=== PATIENT | female | born 2000 | race Caucasian/White ===

== ENCOUNTER 2020-11-14 06:46 | Emergency (ER) | payer OTHER ==
[2020-11-14 06:55] VITALS: O2SAT 100
--- NOTE | 2020-11-14 07:27 | ERPHSYRPT ---
- History of Present Illness Source: patient Patient Subjective Stated Complaint: pt c/o lt leg pain Triage Nursing Assessment: pt c/o lt upper leg pain (groin to knee) area. Pt states, "it started yesterday at 0530 and I tried to walk it off but it is worse today". No edema, no redness noted. Pt c/o pain with palpation. Physician History: 20 yo wf w L groin/leg pain x 1 day. Pt denies injury and states pain 7/10 on pain scale. It is worse w movement and described as burning. She denies swelling/redness/chest pain/dyspnea/back pain. Pt had similar pain in past w . Method of Injury: unknown Occurred: yesterday Quality: constant Severity of Pain-Max: moderate Severity of Pain-Current: moderate Lower Extremities Pain: hip: left, leg: left, thigh: left Modifying Factors: Improves With: movement Associated Symptoms: No unable to bear weight, No dizzy, No fainted, No seizure, No snapping sensation, No popping sensation Allergies/Adverse Reactions: amoxicillin Adverse Reaction (Mild, Verified 11/14/20 07:01) Hives Penicillins Adverse Reaction (Mild, Verified 11/14/20 07:01) Hives Home Medications: Buspirone HCl [Buspar] 10 mg PO TID 11/14/20 [History] buPROPion HCl [Wellbutrin Sr] 200 mg PO DAILY 11/14/20 [History] Hx Tetanus, Diphtheria Vaccination/Date Given: Yes Hx Influenza Vaccination/Date Given: Yes Hx Pneumococcal Vaccination/Date Given: No Immunizations Up to Date: Yes Travel Risk - International Travel Have you traveled outside of the country in past 3 weeks: No - Coronavirus Screening Are you exhibiting any of the following symptoms?: No Close contact with a COVID-19 positive Pt in past 14-21 Days: No - Review of Systems Constitutional: No Symptoms Eyes: No Symptoms Ears, Nose, & Throat: No Symptoms Respiratory: No Symptoms Cardiac: No Symptoms Genitourinary Symptoms: No Symptoms Skin: No Symptoms Neurological: No Symptoms Psychological: No Symptoms Endocrine: No Symptoms Hematologic/Lymphatic: No Symptoms Immunological/Allergic: No Symptoms - Past Medical History Pertinent Past Medical History: Yes Neurological History: No Pertinent History ENT History: No Pertinent History Cardiac History: Other Respiratory History: Asthma Endocrine Medical History: No Pertinent History GI Medical History: No Pertinent History History: No Pertinent History Psycho-Social History: Anxiety, Depression, Other Female Reproductive Disorders: No Pertinent History Other Medical History: ptsd. murmur at a younger age - Past Surgical History Past Surgical History: No Neuro Surgical History: No Pertinent History Cardiac: No Pertinent History Respiratory: No Pertinent History Gastrointestinal: No Pertinent History Genitourinary: No Pertinent History Musculoskeletal: No Pertinent History Female Surgical History: No Pertinent History - Social History Smoking Status: Never smoker Exposure to second hand smoke: Yes Drug Use: none Patient Lives Alone: No Significant Family History: no pertinent family hx - Female History Hx Last Menstrual Period: 10/03/20 Hx Now: No (took home test, negative) - Nursing Vital Signs Nursing Vital Signs: Initial Vital Signs Temperature 98.0 F 11/14/20 06:51 Pulse Rate 99 H 11/14/20 06:51 Respiratory Rate 18 11/14/20 06:51 Blood Pressure 140/71 11/14/20 06:51 O2 Sat by Pulse Oximetry 100 11/14/20 06:51 Pain Scale Pain Intensity 7 - Physical Exam General Appearance: no apparent distress Eyes, Ears, Nose, Throat Exam: normal ENT inspection, TMs normal, pharynx normal, moist mucous membranes Neck Exam: normal inspection, non-tender, supple, full range of motion, No Brudzinski, No Kernig's, No meningismus, No carotid bruit Cardiovascular/Respiratory Exam: normal breath sounds, regular rate/rhythm, heart sounds normal, no respiratory distress, normal peripheral pulses, No murmur Gastrointestinal/Abdominal Exam: non-tender, soft, no organomegaly Back Exam: normal inspection, normal range of motion, No CVA tenderness, No vertebral tenderness, No rash, No decreased range of motion Hips Exam: left: pain (Pain w LLE movement), bilateral: non-tender, normal inspection, normal range of motion Legs Exam: bilateral leg: non-tender, normal inspection, normal range of motion, no evidence of injury Knees Exam: bilateral knee: non-tender, normal inspection, normal range of motion, no evidence of injury Ankle Exam: bilateral ankle: non-tender, normal inspection, normal range of motion, no evidence of injury DTR - Lower Extremities Exam: knee (R): 2+, knee (L): 2+ Neuro/Tendon Exam: normal sensation, normal motor functions, normal tendon functions, responds to pain, no evidence tendon injury, No motor deficit, No sensory deficit Mental Status Exam: alert, oriented x 3, cooperative, No agitated, No uncooperative Skin Exam: normal color, warm, dry, No rash SpO2 Interpretation: normal SpO2: 100 O2 Delivery: Room Air - Course Nursing assessment & vital signs reviewed: Yes - Radiology Ultrasound Exam Venous Lower Extremity Ultrasound: negative (Neg per tech) Ordered Tests: Active Orders 24 hr Category Date Time Status Ultrasound Unilateral Extremities [VENOUS UNILAT/ Exams 11/14/20 07:48 Taken LIMITED EXTREMIT] [US] Stat Medication Summary Discontinued Medications Generic Name Dose Route Start Last Admin Trade Name Freq PRN Reason Stop Dose Admin Ketorolac Tromethamine 60 mg 11/14/20 07:46 11/14/20 07:49 Toradol 30 Mg Injection IM 11/14/20 07:47 60 mg STAT ONE Administration Ketorolac Tromethamine Confirm 11/14/20 07:48 Toradol 30 Mg Injection Administered 11/14/20 07:49 Dose 60 mg .ROUTE .STK-MED ONE - Progress Progress: improved Progress Note: 11/14/20 07:48 60mg IM Toradol - Departure Departure Disposition: Home Clinical Impression: Leg pain Condition: Stable Critical Care Time: No Referrals: JODIE SWANSON MD [Primary Care Provider] - Instructions: Muscle Strain (DC) Additional Instructions: Rest/Heat/Massage Toradol as needed for pain Return to ER for increased pain Activity as tolerated Forms: Work/School Release Form Prescriptions: Ketorolac Tromethamine [Toradol] 10 mg PO TID PRN PRN #10 tablet PRN Reason: Pain
[2020-11-14] MEDS ORDERED: TORAdol 30 mg Injection IM ONE (07:46)
[2020-11-14] MEDS ORDERED: TORAdol 30 mg Injection ONE (07:48)
[2020-11-14 07:55] VITALS: BP 130/92; PULSE 88
--- NOTE | 2020-11-14 08:43 | XRAY ---
Indication: Left lower extremity pain. Two-dimensional sonogram and color Doppler imaging of the major venous vessels of the left leg was performed. Comparison: None No thrombus seen in the examined deep venous vessels of the left leg including greater saphenous vein. Veins demonstrate normal compressibility. Venous waveforms are normal with and without augmentation. Impression: Left leg negative for DVT. Comment: Preliminary report was given.
== END 2020-11-14 08:10 | disposition home or self-care (01) ==
LOC: ED 06:46
DX: M79.652 Pain in left thigh (principal)
CPT/HCPCS: 93971; 96372; 99284; J1885

== ENCOUNTER 2022-10-18 13:24 | Emergency (ER) | payer OTHER ==
[2022-10-18 13:52] VITALS: O2SAT 98
--- NOTE | 2022-10-18 14:04 | ERPHSYRPT ---
- History of Present Illness Time Seen by Provider: 10/18/22 14:02 Source: patient Exam Limitations: no limitations Patient Subjective Stated Complaint: C/O cough that started sometime last week. Denies fever. Patient states someone in the household tested positive for flu A recently. Triage Nursing Assessment: Patient ambulated back to ED without difficulties. No SOB. No cough noted during assessment. Lungs clear. Physician History: C/O cough that started sometime last week. Denies fever. Patient states someone in the household tested positive for flu A recently. Timing/Duration: yesterday Cough Quality/Degree: dry cough Possible Cause: no prior episodes Associated Symptoms: denies symptoms Allergies/Adverse Reactions: amoxicillin Adverse Reaction (Mild, Verified 10/18/22 13:44) Hives Penicillins Adverse Reaction (Mild, Verified 10/18/22 13:44) Hives Home Medications: Lumateperone Tosylate [Caplyta] 1 cap PO DAILY 10/18/22 [History] Hx Tetanus, Diphtheria Vaccination/Date Given: Yes Hx Influenza Vaccination/Date Given: Yes Hx Pneumococcal Vaccination/Date Given: No Immunizations Up to Date: Yes Travel Risk - International Travel Have you traveled outside of the country in past 3 weeks: No - Coronavirus Screening Are you exhibiting any of the following symptoms?: Yes Symptoms: Cough: New Onset Close contact with a COVID-19 positive Pt in past 14-21 Days: No - Vaccine Status Have you recieved a Covid-19 vaccination: Yes Denture Model Maker: Lela - Vaccination Dates Date of 2cond Vaccination (if applicable): 2020 - Review of Systems Constitutional: No Fever, No Chills Eyes: No Symptoms Ears, Nose, & Throat: No Symptoms Respiratory: Cough, No Dyspnea Cardiac: No Chest Pain, No Edema, No Syncope Abdominal/Gastrointestinal: No Abdominal Pain, No Nausea, No Vomiting, No Diarrhea Genitourinary Symptoms: No Dysuria Musculoskeletal: No Back Pain, No Neck Pain Skin: No Rash Neurological: No Dizziness, No Focal Weakness, No Sensory Changes Psychological: No Symptoms Endocrine: No Symptoms All Other Systems: Reviewed and Negative - Past Medical History Pertinent Past Medical History: Yes Neurological History: No Pertinent History ENT History: No Pertinent History Cardiac History: Other Respiratory History: Asthma Endocrine Medical History: No Pertinent History GI Medical History: No Pertinent History History: No Pertinent History Psycho-Social History: Anxiety, Bipolar, Depression, Other Female Reproductive Disorders: No Pertinent History Other Medical History: ptsd. murmur at a younger age - Past Surgical History Past Surgical History: No Neuro Surgical History: No Pertinent History Cardiac: No Pertinent History Respiratory: No Pertinent History Gastrointestinal: No Pertinent History Genitourinary: No Pertinent History Musculoskeletal: No Pertinent History Female Surgical History: No Pertinent History - Social History Smoking Status: Never smoker Exposure to second hand smoke: Yes Drug Use: none Patient Lives Alone: No Significant Family History: no pertinent family hx - Female History Hx Last Menstrual Period: NOT regular Hx Now: No (IUD in place) - Nursing Vital Signs Nursing Vital Signs: Initial Vital Signs Temperature 98.5 F 10/18/22 13:25 Pulse Rate 66 10/18/22 13:25 Respiratory Rate 18 10/18/22 13:25 Blood Pressure 129/86 10/18/22 13:25 O2 Sat by Pulse Oximetry 98 10/18/22 13:25 Pain Scale Pain Intensity 0 - Physical Exam General Appearance: no apparent distress, alert Eye Exam: PERRL/EOMI, eyes nml inspection Ears, Nose, Throat Exam: normal ENT inspection, TMs normal, pharynx normal, moist mucous membranes Neck Exam: normal inspection, non-tender, supple, full range of motion Respiratory Exam: normal breath sounds, lungs clear, No respiratory distress Cardiovascular Exam: regular rate/rhythm, normal heart sounds Gastrointestinal/Abdomen Exam: soft, No tenderness Back Exam: normal inspection, No CVA tenderness, No vertebral tenderness Extremity Exam: normal inspection, normal range of motion Neurologic Exam: alert, oriented x 3, cooperative, normal mood/affect, sensation nml, No motor deficits Skin Exam: normal color, warm, dry, No rash Lymphatic Exam: No adenopathy SpO2: 98 - Course Nursing assessment & vital signs reviewed: Yes Lab/Rad Data: Laboratory Results 10/18/22 Range/Units 14:02 Influenza Type A Ag POSITIVE (NEGATIVE) Influenza Type B Ag NEGATIVE (NEGATIVE) RSV (PCR) NEGATIVE (Negative) SARS-CoV-2 (PCR) NEGATIVE (NEGATIVE) - Progress Progress: unchanged Air Movement: good Blood Culture(s) Obtained: No Antibiotics given: No Counseled pt/family regarding: lab results, diagnosis, need for follow-up - Departure Departure Disposition: Home Clinical Impression: Influenza A Condition: Stable Critical Care Time: No Referrals: NOAH RUGGIERO MD [Primary Care Provider] - Follow up/PCP as directed Instructions: Flu, Adult (DC) Additional Instructions: Discharge/Care Plan JACINTO KRAFT was seen on 10/18/22 in the Emergency Room. The patient was counseled regarding Diagnosis,Lab results, Imaging studies, need for follow up and when to return to the Emergency Room. Prescriptions given: Discharge Note I have spoken with the patient and/or caregivers. I have explained the patient's condition, diagnosis and treatment plan based on the information available to me at this time. I have answered the patient's and/or caregiver's questions and addressed any concerns. The patient and/or caregivers have as good understanding of the patient's diagnosis, condition and treatment plan as can be expected at this point. The vital signs have been stable. The patient's condition is stable and appropriate for discharge from the emergency department. The patient will pursue further outpatient evaluation with the primary care physician or other designated or consulting physician as outlined in the discharge instructions. The patient and/or caregivers are agreeable to this plan of care and follow-up instructions have been explained in detail. The patient and/or caregivers have received these instruction. The patient/and or caregivers are aware that any significant change in condition or worsening of symptoms should prompt an immediate return to this or the closest emergency department or call 911. JACINTO KRAFT was seen on 10/18/22 n the Emergency Room. At that time you were treated for an emergent condition, during your visit Laboratory, Radiology and/or other procedures may have been ordered. It is very important that you follow-up with your Primary Care Physician NOAH RUGGIERO within the next 24- 48 hours to review your Emergency Room visit and the final results of testing that was ordered. Some test results such as Urine Cultures, Blood Cultures, and other cultures if ordered will not be finalized for 24-48 hours. If you do not have a Primary Care Provider please call the medical records department at [phone] ext [phone] to obtain a copy of your results or you may sign into our patient portal to obtain these results by visiting us @ [email or web address] and completing the following steps: 1. Click on the Patient Portal link 2. Click the Patient Self Enrollment Link to complete the enrollment form and entering your 3. Once the enrollment form is completed you will receive an email with a temporary ID and password at the email address you provided. 4. Next choose a user name and password. Your user name must be at least 4 characters long and your password must be at least 4 characters long. 5. Choose a security question from the list and provide your answer to the question. If you already have signed into the Health Portal you may access your Health Care Information 21/06 by the following steps: 1. Login to our website @ [email or web address] 2. Enter your original user name and password. FAQS The [facility] Health Portal is an online tool that contains your Lab Results, Radiology Reports, Visit History, Discharge Instructions and Health Summary Lab and Radiology Results will not be available for 72 hours on the portal. The Portal is a secure site, passwords are encryted and URLs are re-written so they cannot be copied and pasted. You and authorized family members are the only ones who can access your Portal. Also there is a timeout feature that protects your information if you leave the Portal page open. If you have technical difficulty please use the Contact Us link on the page this will allow you to submit any questions you have regarding the Portal or you may contact the Medical Record Department at [phone] ext [phone]. Prescriptions: Oseltamivir 75 mg [Tamiflu 75MG Capsule] 75 mg PO BID #10 cap
[2022-10-18 14:40] LABS: INFLUENZA B NEGATIVE (NEGATIVE); RESPIRATORY SYNCTIAL VIRUS NEGATIVE (Negative); SARS-CoV-2 Xpert Express NEGATIVE (NEGATIVE)
[2022-10-18 14:42] LABS: INFLUENZA A POSITIVE (NEGATIVE)
[2022-10-18 15:00] VITALS: BP 118/62; PULSE 70
== END 2022-10-18 15:00 | disposition home or self-care (01) ==
LOC: ED 13:24
DX: J10.1 Influenza due to other identified influenza virus with other respiratory manifestations (principal); R05.1 Acute cough; Z79.899 Other long term (current) drug therapy
CPT/HCPCS: 0241U; 99282